=== PATIENT | female | born 1965 | race Caucasian/White ===

== ENCOUNTER → 2024-10-13 15:21 | Outpatient (REF) | payer MEDICARE, OTHER, SELFPAY | LOC: RAD 15:21 | PROVIDERS: ATTENDING PHYSICIAN Physician Assistant | DX: M54.50 Low back pain, unspecified (principal) | CPT/HCPCS: 72110 ==

== ENCOUNTER → 2024-12-07 13:36 | Outpatient (REF) | payer MEDICARE, SELFPAY | LOC: WDC 13:36 | PROVIDERS: ATTENDING PHYSICIAN Physician Assistant | DX: Z12.31 Encounter for screening mammogram for malignant neoplasm of breast (principal); Z13.820 Encounter for screening for osteoporosis; M85.89 Other specified disorders of bone density and structure, multiple sites; Z78.0 Asymptomatic menopausal state | CPT/HCPCS: 77063; 77067; 77080 ==

== ENCOUNTER → 2025-05-09 15:41 | Outpatient (REF) | payer OTHER, MEDICARE, SELFPAY | LOC: RAD 15:41 | PROVIDERS: ATTENDING PHYSICIAN Physician Assistant | DX: S13.4XXD Sprain of ligaments of cervical spine, subsequent encounter (principal); M25.512 Pain in left shoulder; M25.552 Pain in left hip | CPT/HCPCS: 72050; 73030; 73502 ==